=== PATIENT | male | born 1970 | race Caucasian/White ===

== ENCOUNTER 2017-05-25 16:07 | Emergency (ER) | payer OTHER ==
[2017-05-25 16:23] VITALS: BP 127/73; PULSE 114; BMI 31.2
[2017-05-25] MEDS ORDERED: IBUPROFEN 400 MG TABLET (FP) PO ONE ×2 (16:28→16:37)
[2017-05-25] MEDS ORDERED: ACETAMINOPHEN 500 MG TABLET (FP) PO ONE (16:28)
[2017-05-25] MEDS ORDERED: ACETAMINOPHEN 500 MG TABLET (FP) ONE (16:37)
[2017-05-25] MEDS ORDERED: CLARITHROMYCIN 500 MG TABLET (UD) PO ONE (16:38)
--- NOTE | 2017-05-25 16:38 | PDOC ---
History of Present Illness <Ernst Nelson - Last Filed: 05/25/17 16:55> - General History Source: Patient Exam Limitations: No Limitations - History of Present Illness Initial Comments: 05/25/17 17:01 46 y/o M with no significant PMHx presents to the ED with fever (Tmax 102), chills, headache and sore throat since yesterday. Patients family has strep at home. Patient reports symptoms are similar to strep symptoms in the past. Denies cough, nausea, vomiting. Denies other complaints. PCP: Dr. Mohit Mosley <Odalis Gregory - Last Filed: 05/25/17 17:00> <Bob Gilman - Last Filed: 05/27/17 09:50> - General Chief Complaint: Sore Throat Stated Complaint: SORE THROAT Time Seen by Provider: 05/25/17 16:13 Past History - Past Medical History Other medical history: DENIES - Immunization History Immunization Up to Date: Yes - Psycho/Social/Smoking Cessation Hx Anxiety: No Suicidal Ideation: No Smoking History: Never smoked Have you smoked in the past 12 months: No Information on smoking cessation initiated: No Hx Alcohol Use: No Drug/Substance Use Hx: No Substance Use Type: None <Ernst Nelson - Last Filed: 05/25/17 16:55> <Odalis Gregory - Last Filed: 05/25/17 17:00> <Bob Gilman - Last Filed: 05/27/17 09:50> - Past Medical History Allergies/Adverse Reactions: Allergies Allergy/AdvReac Type Severity Reaction Status Date / Time amoxicillin Allergy Verified 05/25/17 16:32 Home Medications: Ambulatory Orders Clarithromycin [Biaxin] 500 mg PO BID #20 tablet 05/25/17 Review of Systems - Review of Systems Constitutional: Yes: Chills, Fever, Night Sweats HEENTM: Yes: Throat Pain, Throat Swelling. No: Ear Pain, Nose Congestion Respiratory: No: Cough, Shortness of Breath Cardiac (ROS): No: Chest Pain Neurological: No: Headache All Other Systems: Reviewed and Negative <Ernst Nelson - Last Filed: 05/25/17 16:55> *Physical Exam - Vital Signs Last Vital Signs Temp Pulse Resp BP Pulse Ox 102.8 F H 114 H 20 127/73 98 05/25/17 16:08 05/25/17 16:08 05/25/17 16:08 05/25/17 16:08 05/25/17 16:08 <Ernst Nelson - Last Filed: 05/25/17 16:55> - Vital Signs Last Vital Signs Temp Pulse Resp BP Pulse Ox 100.6 F H 114 H 20 127/73 98 05/25/17 16:58 05/25/17 16:08 05/25/17 16:08 05/25/17 16:08 05/25/17 16:08 - Physical Exam Comments: 05/25/17 17:01 GENERAL: The patient is awake, alert, and fully oriented, in no acute distress. HEAD: Normal with no signs of trauma. EYES: Pupils equal, round and reactive to light, extraocular movements intact, sclera anicteric, conjunctiva clear with no pallor. ENT: Uvula is midline, tonsillar enlargement, but airways are patent. Bilateral tonsillar exudates. Ears normal, nares patent. Moist mucous membranes. NECK: Positive anterior and submandibular lymphadenopathy. Normal range of motion, JVD, or masses. LUNGS: No stridor. Breath sounds equal, clear to auscultation bilaterally. No wheeze/crackles. HEART: Regular rate and rhythm, improved from triage, normal S1 and S2 without murmur or rub. ABDOMEN: Soft/nontender/nondistended. BS wnl. No guarding or rebound. No palpable masses. No hepatosplenomegaly. EXTREMITIES: Normal range of motion, no edema. No clubbing or cyanosis. No cords, erythema, or tenderness. NEUROLOGICAL: Cranial nerves II through XII grossly intact. Normal speech, normal gait. PSYCH: Normal mood, normal affect. SKIN: Warm, Dry, normal turgor, no rashes or lesions noted. <Odalis Gregory - Last Filed: 05/25/17 17:00> - Vital Signs Last Vital Signs Temp Pulse Resp BP Pulse Ox 100.6 F H 114 H 20 127/73 98 05/25/17 16:58 05/25/17 16:08 05/25/17 16:08 05/25/17 16:08 05/25/17 16:08 <Bob Gilman - Last Filed: 05/27/17 09:50> ED Treatment Course - ADDITIONAL ORDERS Additional order review: 05/25/17 16:32 Group A Strep Rapid Antigen - Final Throat - Medications Given in the ED: ED Medications Discontinued Medications Generic Name Dose Route Start Last Admin Trade Name Freq PRN Reason Stop Dose Admin Clarithromycin 500 mg 05/25/17 16:38 05/25/17 16:59 Biaxin - PO 05/25/17 16:39 Not Given ONCE ONE <Odalis Gregory - Last Filed: 05/25/17 17:00> - ADDITIONAL ORDERS Additional order review: 05/25/17 16:32 Group A Strep Rapid Antigen - Final Throat - Medications Given in the ED: ED Medications Discontinued Medications Generic Name Dose Route Start Last Admin Trade Name Freq PRN Reason Stop Dose Admin Acetaminophen 1,000 mg 05/25/17 16:28 05/25/17 16:39 Tylenol - PO 05/25/17 16:29 1,000 mg ONCE ONE Administration Clarithromycin 500 mg 05/25/17 16:38 05/25/17 16:59 Biaxin - PO 05/25/17 16:39 Not Given ONCE ONE Ibuprofen 800 mg 05/25/17 16:28 05/25/17 16:39 Motrin - PO 05/25/17 16:29 800 mg ONCE ONE Administration <Bob Gilman - Last Filed: 05/27/17 09:50> Medical Decision Making - Medical Decision Making 05/25/17 16:56 46-year-old male with no significant past medical history other than recurring pharyngitis presents with fever/chills/throat pain since yesterday. Family members at home with strep pharyngitis, patient states this is typical of his pharyngitis exacerbations. Last episode was about one year ago, typically treated with Biaxin by Dr. Sharp. His PCP is aware and vacation so he presents to the emergency department for evaluation. He has no other complaints. Fever and associated tachycardia, improving after antipyretics Well-appearing, ambulating, speaking full sentences No stridor, tolerating secretions Bilateral tonsillar exudates, uvula midline, airway patent 46-year-old male with pharyngitis, rapid strep positive. No airway issues, generally well-appearing. We'll treat with course of Biaxin Antipyretics, NSAIDs for swelling Understands return criteria, ENT follow-up as needed <Ernst Nelson - Last Filed: 05/25/17 16:55> - Medical Decision Making 05/27/17 09:49 Streptococcus Pyogenes Grp A culture positive, treated with Zithromax, No action necessary <Bob Gilman - Last Filed: 05/27/17 09:50> *DC/Admit/Observation/Transfer <Ernst Nelson - Last Filed: 05/25/17 16:55> - Attestations Scribe Attestion: 05/25/17 17:01 Documentation prepared by Odalis Gregory, acting as medical affairs director for Ernst Nelson MD. <Odalis Gregory - Last Filed: 05/25/17 17:00> <Bob Gilman - Last Filed: 05/27/17 09:50> Diagnosis at time of Disposition: Pharyngitis Qualifiers: Pharyngitis/tonsillitis etiology: streptococcus Qualified Code(s): J02.0 - Streptococcal pharyngitis - Discharge Dispostion Disposition: HOME Condition at time of disposition: Improved - Prescriptions Prescriptions: Clarithromycin [Biaxin] 500 mg PO BID #20 tablet - Referrals Referrals: Seamus Ellis MD [Staff Physician] - - Patient Instructions Printed Discharge Instructions: DI for Pharyngitis/Tonsillopharyngitis -- Adult Additional Instructions: Activity as tolerated, stay hydrated. The tests were positive for strep, which is the cause of your pharyngitis and tonsillitis. Take ibuprofen 600 mg every 8 hours and/or Tylenol 1000 mg every 8 hours as needed for fever/pain. Take Biaxin as prescribed as antibiotic. You should follow-up with Dr. Sharp as soon as possible regarding today's emergency department visit. Also consider follow-up with an ENT specialist, consider calling Dr. Ellis. Return to the emergency department for any new or concerning symptoms, including intolerable pain, difficulty swallowing or breathing, persistent fevers or chills.
[2017-05-25 16:59] VITALS: TEMP 100.6
== END 2017-05-25 17:06 | disposition home or self-care (01) ==
LOC: FER 16:07
DX: J02.0 Streptococcal pharyngitis (principal)
CPT/HCPCS: 87070; 87430; 99282-25